=== PATIENT | male | born 1995 | race Caucasian/White ===

== ENCOUNTER 2018-08-11 12:15 | Emergency (ER) | payer OTHER ==
[2018-08-11] MEDS ORDERED: ACETAMINOPHEN 325 MG TABLET PO ONE (12:47)
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
[2018-08-11 13:51] VITALS: BP 123/66
== END 2018-08-11 13:55 | disposition home or self-care (01) ==
LOC: ER 12:15
DX: M54.5 Low back pain (principal); M54.2 Cervicalgia; V87.7XXA Person injured in collision between other specified motor vehicles (traffic), initial encounter
CPT/HCPCS: 70450; 72110; 72125; 99284